=== PATIENT | female | born 1980 | race Caucasian/White ===

== ENCOUNTER 2020-10-11 08:36 | Emergency (ER) | payer OTHER, SELFPAY ==
[2020-10-11 08:44] VITALS: BP 140/90; PULSE 97; RESP 16; TEMP 37.2; O2SAT 100
--- NOTE | 2020-10-11 09:07 | ED.EYEPROB ---
HPI - Eye Problem General Chief complaint: Eye Problems Stated complaint: watery eyes Time Seen by Provider: 10/11/20 09:00 Source: patient, RN notes reviewed and old records reviewed Mode of arrival: ambulatory Limitations: no limitations History of Present Illness HPI Narrative: [id number] year old female who presents to [facility] care with complaints of pulling a box off of a shelf and dust going into her face 2 weeks ago. She states that 2 days later she started having some irritation to her eyes with symptoms increasing to her left eye gradually over this past week. Patient states that her eyes are watering and she has had some yellowish drainage noted from her left eye with eye feeling irritated. Patient states that she has washed her left eye out with water and has been using Visine eye drops with no resolution to her symptoms. Patient states increase in eye watering but denies any change in her vision or any sharp pain to her eyes.Visual acuity to bilateral eyes 20/50 without corrective lens. chief complaint: eye redness and other (crusting and drainage to left eye) Onset (ago): week(s) (1) Onset description: gradual Duration: progressively worsening Location: left eye Eye Symptoms: redness, discharge and other (watery eyes) Place: home Mechanism: other (dust into face) Severity: moderate Severity scale (1-10): 4 If Pain, Quality: aching Associated symptoms: none Treatments Prior to Arrival: other (visine) Related Data Allergies Allergy/AdvReac Type Severity Reaction Status Date / Time iloperidone Allergy Intermediate DISORIENTATION, Verified 10/11/20 08:59 PALPATATIONS tramadol Allergy Unknown Palpitation Verified 10/11/20 08:59 s Review of Systems Review of Systems: Narrative: CONSTITUTIONAL: Denies fever, chills, or sweats. EYES: Denies visual changes,positive for redness, and discharge left eye, denies any sharp pain to left eye or acute vision changes ENT: Denies rhinorrhea, congestion, sore throat, or otalgia. CARDIOVASCULAR: Denies chest pain, palpitations, or edema. RESPIRATORY: Denies cough or dyspnea. GASTROINTESTINAL: Denies abdominal pain, nausea, vomiting, or diarrhea. GENITOURINARY: Denies dysuria or hematuria. SKIN: Denies rash or itching. MUSCULOSKELETAL:chronic back pain, joint pain, or myalgia. NEUROLOGIC: Denies headache, numbness, or weakness. PSYCHIATRIC: Positive history of anxiety or depression.schizoaffective disorder,PTSD All systems reviewed & are unremarkable except as noted in HPI and below PMFSH Past Medical History Medical History (Updated 10/13/20 @ 15:34 by Marley Woodard NP) Colorectal cancer Renal failure episode during chemotherapy now resolved Schizoaffective disorder, chronic condition Surgical History Surgical History (Updated 10/13/20 @ 15:34 by Marley Woodard NP) History of hysterectomy History of skin graft History of spinal surgery x2 Hx of total colectomy Ileostomy colo-rectal cancer Family History Family History (Updated 10/11/20 @ 09:34 by Marley Woodard NP) Mother Carcinoma of colon Grandparent Carcinoma of colon Mother Heart disease Father Hypertension Social History Social History (Updated 10/11/20 @ 09:33 by Marley Woodard NP) Smoking status: Current every day smoker Alcohol intake: unknown Substance use: current Substance use type: marijuana Living arrangements: with family Gender identity (if verbalized by the patient): Female Comments At time of signature, agree with nursing past medical, surgical, social and family history. There is no relevant family history pertinent to the presenting complaint Exam Narrative: Exam Narrative: GENERAL: Well-appearing, well-nourished, unkept appearance,and in no acute distress. HEAD: Normocephalic, atraumatic. EYES: PERRLA and EOMI.redness irritation and drainage from left eye, no sharp pain or changes in vision.conjunctiva red. ENT: Nares clear, no rhinorrhea or epist
== END 2020-10-11 09:42 | disposition home or self-care (01) ==
PROVIDERS: Emergency Provider Registered Nurse
DX: H10.9 Unspecified conjunctivitis (principal); F17.200 Nicotine dependence, unspecified, uncomplicated; Z85.038 Personal history of other malignant neoplasm of large intestine
CPT/HCPCS: 99213; G0463